=== PATIENT | female | born 1985 | race Caucasian/White ===

== ENCOUNTER 2021-12-12 18:53 | Emergency (ER) | payer OTHER ==
[~2021-12-12 18:53] MED LIST: BENTYL 10MG CAP10 MG PO; CARDIZEM CD180 MG PO; KLONOPIN TAB 00.5 MG PO; LOPRESSOR100 MG PO; ULTRAM50 MG PO; ZOFRAN ODT4 MG SL
[2021-12-12] MEDS ORDERED: CEPHALEXIN500 M1 PO (20:13)
[2021-12-12] MEDS ORDERED: BACTRIM DS TAB1 EACH PO (20:13)
== END 2021-12-12 20:15 | disposition home or self-care (01) ==
LOC: ER1 18:53
DX: S50.852A Superficial foreign body of left forearm, initial encounter (principal); F17.210 Nicotine dependence, cigarettes, uncomplicated; I10 Essential (primary) hypertension; X58.XXXA Exposure to other specified factors, initial encounter
CPT/HCPCS: 73090; 99283

== ENCOUNTER 2022-02-11 18:23 | Emergency (ER) | payer OTHER ==
[~2022-02-11 18:23] MED LIST changes: +BACTRIM DS TAB1 EACH PO; +CEPHALEXIN500 M1 PO
== END 2022-02-11 23:09 | disposition left against medical advice (07) ==
LOC: ER1 18:23
DX: R50.9 Fever, unspecified (principal); R51.9 Headache, unspecified; F17.210 Nicotine dependence, cigarettes, uncomplicated; Z20.822 Contact with and (suspected) exposure to COVID-19
CPT/HCPCS: 0240U; 99281

== ENCOUNTER 2022-04-02 09:06 | Emergency (ER) | payer OTHER ==
[2022-04-02 09:50] LABS: HEMOGLOBIN 12.3 gm/dl (12.3-15.3); RED BLOOD COUNT 4.37 M/UL (4.00-5.10); WHITE BLOOD COUNT 23.2 K/UL (4.5-11.0)
[2022-04-02 10:14] LABS: BUN/CREATININE RATIO 12 (0-10)
[2022-04-02] MEDS ORDERED: BACTRIM 400-801 EACH PO (16:18)
[2022-04-02] MEDS ORDERED: OMNICEF 300 MG300 MG PO (16:18)
== END 2022-04-02 17:32 | disposition left against medical advice (07) ==
LOC: ER1 09:06 → CDU 15:32
PROVIDERS: Emergency Medicine
DX: R78.81 Bacteremia (principal); Z95.0 Presence of cardiac pacemaker; Z20.822 Contact with and (suspected) exposure to COVID-19
CPT/HCPCS: 71045; 76705; 76830; 80053; 81001; 83605; 83735; 83880; 84100; 85025; 87040; 87086; 93005; 96374; 96375; 99283; G0378; J0696; J3370; Q9967; U0002